=== PATIENT | male | born 1975 | race American Indian/Alaskan Native ===

== ENCOUNTER 2019-12-26 00:32 | Emergency (ER) | payer OTHER ==
[2019-12-26] MEDS ORDERED: traMADol 50 MG TAB PO ONE (03:43)
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
[2019-12-26 05:07] VITALS: BP 100/66
== END 2019-12-26 04:50 | disposition home or self-care (01) ==
LOC: ED 00:32
DX: M54.2 Cervicalgia (principal); R10.9 Unspecified abdominal pain; Z79.899 Other long term (current) drug therapy; V49.49XA Driver injured in collision with other motor vehicles in traffic accident, initial encounter; Y92.410 Unspecified street and highway as the place of occurrence of the external cause; Y93.89 Activity, other specified; Y99.8 Other external cause status
CPT/HCPCS: 99282

== ENCOUNTER 2020-01-04 22:02 | Emergency (ER) | payer OTHER ==
[2020-01-04 23:28] VITALS: BP 112/72
--- NOTE | 2020-01-05 00:39 | XRay Report ---
Abdomen single view INDICATION: Abdominal pain IMPRESSION: Large stool burden identified throughout the colon. Nonobstructive bowel gas pattern. Signer Name: Harvey Guerra MD Signed: 01/05/2020 12:35 AM Workstation Name: [id number]
--- NOTE | 2020-01-05 03:06 | Emergency Department Report ---
HPI - General Chief Complaint: Abdominal Pain Time Seen by Provider: 01/05/20 02:33 - HPI HPI: This is a 44-year-old male who presents to the emergency department with complaint of swallowing small pieces of plastic or glass accidentally. The patient got a smoothie from [employer] at about 4 PM. Almost immediately the patient began tasting some hard substance in his mouth and it looked to be glass. The patient says "every time I get my finger in the smoothie I find another piece." Patient denies any abdominal pain but says that he has a burning sensation. Earlier he also had an irritated throat and some pain to the back of his head. At this time the patient is mostly asymptomatic. He has not taken anything for symptoms prior to presentation. He denies any past medical history. ED Past Medical Hx - Past Medical History Previous Medical History?: No - Surgical History Past Surgical History?: No - Social History Smoking Status: Never Smoker - Medications Home Medications: Home Medications Medication Instructions Recorded Confirmed Last Taken Type Cyclobenzaprine [Flexeril] 10 mg PO TID PRN #30 tablet 12/26/19 Unknown Rx Menthol/Camphor [[place] 1 applicatio TP DAILY PRN #1 tube 12/26/19 Unknown Rx Ointment] Naproxen 500 mg PO BID PRN #30 tablet 12/26/19 Unknown Rx Docusate Sodium [Colace] 100 mg PO BID PRN #20 capsule 01/05/20 Unknown Rx ED Review of Systems ROS: Stated complaint: INGESTION OF FOREIGN BODY Other details as noted in HPI Comment: All other systems reviewed and negative Constitutional: denies: chills, fever ENT: throat pain Respiratory: denies: shortness of breath Cardiovascular: denies: chest pain Gastrointestinal: abdominal pain. denies: vomiting Musculoskeletal: denies: back pain Neurological: headache. denies: weakness Physical Exam - Physical Exam Vital Signs: Vital Signs 01/04/20 23:21 Temperature 98.0 F Pulse Rate 58 L Respiratory 20 Rate Blood Pressure 112/72 O2 Sat by Pulse 97 Oximetry Physical Exam: GENERAL: The patient is well-developed well-nourished. HENT: Normocephalic. Atraumatic. Patient has moist mucous membranes. EYES: Extraocular motions are intact. NECK: Supple. Trachea is midline. CHEST/LUNGS: Clear to auscultation. There is no respiratory distress noted. HEART/CARDIOVASCULAR: Regular. There is no tachycardia. ABDOMEN: Abdomen is soft, nontender. Patient has normal bowel sounds. There is no abdominal distention. SKIN: Skin is warm and dry. NEURO: The patient is awake, alert, and oriented. The patient is cooperative. Normal speech. MUSCULOSKELETAL: There is no tenderness or deformity. ED Course Vital Signs 01/04/20 23:21 Temperature 98.0 F Pulse Rate 58 L Respiratory 20 Rate Blood Pressure 112/72 O2 Sat by Pulse 97 Oximetry - Reevaluation(s) Reevaluation #1: 01/05/20 04:28 Vital Signs 01/04/20 23:21 Temperature 98.0 F Pulse Rate 58 L Respiratory 20 Rate Blood Pressure 112/72 O2 Sat by Pulse 97 Oximetry ED Medical Decision Making - Radiology Data Radiology results: report reviewed Abdomen single view INDICATION: Abdominal pain IMPRESSION: Large stool burden identified throughout the colon. Nonobstructive bowel gas pattern. Signer Name: Harvey Guerra MD Signed: 01/05/2020 12:35 AM Workstation Name: [id number] - Medical Decision Making This patient presents to the emergency department with concern that he ingested either some glass or some plastic that was in a smoothie that he drank earlier in the afternoon. Patient says that he initially had some posterior head pain, irritated throat, and some abdominal discomfort. At the time of my examination he just says that there is some burning sensation in his abdomen. On examination he has no tenderness to palpation. There is no guarding. The abdomen is soft, nondistended and nontoxic in appearance. Abdominal x-ray shows a large stool burden but there are no radiopaque foreign body seen. No free air. The patient does not complain of any melena or GI bleeding. Vital signs are reassuring throughout his ED course. The patient will be discharged home to follow-up with primary care. He will return to the ER with any worsening of his symptoms or with any acute distress. Critical Care Time: No Critical care attestation.: If time is entered above; I have spent that time in minutes in the direct care of this critically ill patient, excluding procedure time. ED Disposition Clinical Impression: Increased stool volume Foreign body ingestion Qualifiers: Encounter type: initial encounter Qualified Code(s): T18.9XXA - Foreign body of alimentary tract, part unspecified, initial encounter Disposition: TO HOME OR SELFCARE Is pt being admited?: No Condition: Stable Instructions: Foreign Body Ingestion (ED) Additional Instructions: Please follow-up with a primary care physician in the next few days. Return to the emergency department with any increased abdominal pain, signs of blood in your stool, worsening of your symptoms, or with any acute distress. Prescriptions: Docusate Sodium [Colace] 100 mg PO BID PRN #20 capsule PRN Reason: Constipation Referrals: SHARON SAWYER MD [Staff Physician] - 2-[address] [facility] [Provider Group] - 2-3 Days Time of Disposition: 03:06
== END 2020-01-05 03:12 | disposition home or self-care (01) ==
LOC: ED 22:02
DX: T18.9XXA Foreign body of alimentary tract, part unspecified, initial encounter (principal); K56.41 Fecal impaction; Z79.899 Other long term (current) drug therapy; X58.XXXA Exposure to other specified factors, initial encounter; Y93.89 Activity, other specified; Y92.89 Other specified places as the place of occurrence of the external cause; Y99.8 Other external cause status
CPT/HCPCS: 74018